=== PATIENT | male | born 1985 | race Caucasian/White ===

== ENCOUNTER 2017-01-22 10:34 | Emergency (ER) | payer BC, OTHER ==
[2017-01-22 11:05] LABS: URINE BILIRUBIN NEGATIVE (NEGATIVE); URINE BLOOD 4+ (NEGATIVE); URINE GLUCOSE (UA) NEGATIVE (NEGATIVE); URINE LEUKOCYTE ESTERASE TRACE (NEGATIVE); URINE NITRITE NEGATIVE (NEGATIVE); URINE PROTEIN 1+ (NEGATIVE); URINE UROBILINOGEN NORMAL (0-1 mg/dl)
[2017-01-22 11:09] LABS: URINE APPEARANCE CLOUDY; URINE COLOR RED
[2017-01-22 11:15] LABS: URINE BACTERIA 0; URINE EPITHELIAL CELLS RARE /hpf; URINE RBC 50-100 /hpf; URINE WBC 0-1 /hpf
--- NOTE | 2017-01-22 12:17 | US ---
RENALS/BLADDER COMPARISON: CT pelvis with contrast 12/21/2013. Abdomen one view, 01/22/2017 HISTORY: 32 years old. Hematuria and painful urination for one day. FINDINGS: Right kidney: Normal size, 11.5 x 5.0 x 5.1 cm. Normal cortical thickness 8 mm. Normal resistive index 0.59. 4 x 7 mm nephrocalcinosis in the interpolar region. No hydronephrosis, mass, or cyst. Left kidney: Normal size, 10.7 x 4.5 x 5.9 cm. Normal cortical thickness 9 mm. Normal resistive index 0.61. In the mid to lower pole, there is some fat within a mildly dilated calyceal region. No hydronephrosis, stone, mass, or cyst. Ureters: Left ureteral jets visible. Right ureteral jet not visible after 10 minutes. Urinary bladder: Prevoid volume 195 mL. Post void volume 68 mL IMPRESSION: 1. The right ureter did not jet urine into the bladder after 10 minutes,, without right hydronephrosis or hydroureter. On the comparison abdomen radiograph, there are phleboliths in the pelvis, with no suggestion of a lower ureteral stone. 2. Minimal nephrocalcinosis in the right kidney. 3. No stones in either kidney. No mass. The report was sent to the emergency department electronic medical record system 01/22/2017 at 12:16
--- NOTE | 2017-01-22 12:17 | RAD ---
ABDOMEN OR KUB COMPARISON: CT pelvis with contrast, 12/21/2013 HISTORY: Hematuria and pain FINDINGS: View: Supine abdomen. Bowel gas pattern: No evidence of bowel obstruction. Moderate fecal loading. Organomegaly: None. Soft tissue calcification: There are phleboliths in the pelvis. Surgical clips: None. Bones: Normal. IMPRESSION: There are phleboliths in the pelvis. No radiographic evidence of kidney stone. Constipation is suspected.
[2017-01-22 12:48] LABS: ABSOLUTE NEUTROPHIL COUNT 4.8 K/mm3 (1.8-7.7); BASO % 0.3 % (0.2-1.0); EOS # 0.1 (0.0-0.5); HEMOGLOBIN 14.6 gm/l (14.0-18.0); IMM NEUT% 0.3 % (0-1); LYMPH # 1.5 (1.0-4.8); LYMPH % 21.8 % (15-45); MEAN CELL VOLUME 86.3 fl (80.0-94.0); MEAN CORPUSCULAR HEMOGLOBIN 28.6 pg (27.0-31.0); MEAN CORPUSCULAR HGB CONC 33.2 g/dl (33.0-37.0); MEAN PLATELET VOLUME 9.5 fl (7.4-10.4); MONO # 0.6 (0.0-0.8); MONO % 8.2 % (4-12); NEUT % 67.4 % (43-75); PLATELET COUNT 287 K/mm3 (130-400); RED CELL DISTRIBUTION WIDTH 12.5 % (11.5-14.5)
[2017-01-22 12:57] LABS: CALCIUM 9.9 mg/dL (8.6-10.3)
== END 2017-01-22 13:30 | disposition home or self-care (01) ==
LOC: ED 10:34
DX: R31.9 Hematuria, unspecified (principal); I47.1 Supraventricular tachycardia